=== PATIENT | male | born 1995 | race African-American/Black ===

== ENCOUNTER 2017-03-16 20:01 | Emergency (ER) | payer OTHER ==
[~2017-03-16] VITALS: Ht 170.2 cm; Wt 79.5 kg
[~2017-03-16 20:01] MED LIST: PERCOCET 325 MG1 TA2 PO; ULTRAM 50MG TAB50 MG PO
[2017-03-16 20:02] VITALS: TEMP 98
[2017-03-16] MEDS ORDERED: MOTRIN 800800 MG/TAB PO (21:07)
[2017-03-16] MEDS ORDERED: NORCO 325 MG-51 TAB PO (21:38)
[2017-03-16 21:51] VITALS: BP 138/97; PULSE 89
== END 2017-03-16 21:53 | disposition home or self-care (01) ==
LOC: COL.ER 20:01
DX: S70.12XA Contusion of left thigh, initial encounter (principal); W20.8XXA Other cause of strike by thrown, projected or falling object, initial encounter; Y92.69 Other specified industrial and construction area as the place of occurrence of the external cause; Y99.0 Civilian activity done for income or pay

== ENCOUNTER 2017-04-26 11:17 | Outpatient (RCR) | payer OTHER ==
[~2017-04-26 11:17] MED LIST changes: +MOTRIN 800800 MG/TAB PO; +NORCO 325 MG-51 TAB PO
== END 2017-05-09 14:59 | disposition still patient (30) ==
LOC: WSOH 11:17
DX: S70.12XA Contusion of left thigh, initial encounter (principal); M62.838 Other muscle spasm; R20.0 Anesthesia of skin; R20.2 Paresthesia of skin; Z88.1 Allergy status to other antibiotic agents; Z88.0 Allergy status to penicillin; Z88.2 Allergy status to sulfonamides; W20.8XXA Other cause of strike by thrown, projected or falling object, initial encounter; Y99.0 Civilian activity done for income or pay

== ENCOUNTER 2017-07-12 11:12 | Outpatient (RCR) | payer OTHER | END 2017-10-10 | disposition home or self-care (01) | LOC: WSOH | DX: S70.12XD Contusion of left thigh, subsequent encounter (principal); W22.8XXD Striking against or struck by other objects, subsequent encounter; Y99.0 Civilian activity done for income or pay ==

== ENCOUNTER 2020-04-04 19:28 | Emergency (ER) | payer SELFPAY ==
[~2020-04-04] VITALS: Ht 170.2 cm; Wt 81.8 kg
[2020-04-04 19:35] VITALS: BP 155/98; PULSE 94; TEMP 98.5
== END 2020-04-04 20:37 | disposition left against medical advice (07) ==
LOC: COL.ER 19:28
DX: S61.210A Laceration without foreign body of right index finger without damage to nail, initial encounter (principal); W26.9XXA Contact with unspecified sharp object(s), initial encounter